=== PATIENT | female | born 1990 | race Caucasian/White ===

== ENCOUNTER 2016-10-14 00:17 | Emergency (ER) | payer OTHER ==
[2016-10-14 00:22] VITALS: RESP 18
--- NOTE | 2016-10-14 00:41 | ED ---
Lower Extremity Injury HPI - General Chief Complaint: Extremity Injury, Lower Stated Complaint: R Ankle Injury Time Seen by Provider: 10/14/16 00:26 Source: patient, RN notes reviewed Mode of arrival: wheelchair Limitations: no limitations - History of Present Illness Initial Comments: 26-year-old female presents to the emergency department with a chief complaint of right foot and palacios pain. Patient states she was jumping off the diving board and developed he threw his foot and should. Patient states she did not hit her head there is no other injury. Patient states that she has increased pain when she touches walks or moves that extremity. Patient denies any knee pain. Patient states due to her pain and swelling she thought that she should be evaluated.Patient denies any recent fever, chills, shortness of breath, chest pain, back pain, abdominal pain, nausea vomiting, numbness or tingling, dysuria or hematuria, constipation or diarrhea, headaches or visual changes, or any other current symptoms. - Related Data Previous Rx's Medication Instructions Recorded Ibuprofen [Motrin] 600 mg PO Q6HR PRN #20 tab 10/14/16 Allergies Allergy/AdvReac Type Severity Reaction Status Date / Time adhesive Allergy Rash/Hives Verified 10/14/16 00:22 latex Allergy Rash/Hives Verified 10/14/16 00:22 Review of Systems ROS Statement: Those systems with pertinent positive or pertinent negative responses have been documented in the HPI. ROS Other: All systems not noted in ROS Statement are negative. Past Medical History Past Medical History: No Reported History History of Any Multi-Drug Resistant Organisms: None Reported Past Surgical History: No Surgical Hx Reported Past Psychological History: No Psychological Hx Reported Smoking Status: Never smoker Past Alcohol Use History: None Reported Past Drug Use History: None Reported General Exam - General Exam Comments Initial Comments: General: The patient is awake and alert, in no distress, and does not appear acutely ill. Neck: The neck is supple, there is no tenderness or JVD. Cardiovascular: There is a regular rate and rhythm. No murmur, rub or gallop is appreciated. Respiratory: Lungs are clear to auscultation, respirations are non-labored, breath sounds are equal. No wheezes, stridor, rales, or rhonchi. Musculoskeletal: Sensation intact. 2+ pulses throughout the right lower extremity. Patient does appear to have swelling to the right foot and tenderness along the forefoot. No tenderness to the bony prominences of the right ankle. Tenderness along the tibia. No tenderness to the right knee. Full range of motion of right knee and right ankle. Neurological: CN II-XII intact, There are no obvious motor or sensory deficits. Coordination appears grossly intact. Speech is normal. Skin: Skin is warm and dry and no rashes or lesions are noted. Psychiatric: Normal mood and affect. Limitations: no limitations Course Vital Signs 10/14/16 00:20 Temperature 98.0 F Pulse Rate 94 Respiratory 18 Rate Blood Pressure 174/92 O2 Sat by Pulse 98 Oximetry Procedures - Orthopedic Splinting/Casting Injury #1 Side: right Lower Extremity Injury Location: foot Lower Extremity Immobilizer: posterior splint (Short leg) Medical Decision Making - Medical Decision Making 26-year-old female presents emergency Department chief complaint of right foot injury. This time patient's x-ray is reviewed that is showing suspicion for Lisfranc 10-like injury. This time she was placed in a splint. We discussed the importance of follow-up with or so. We did discuss the risks of this not being treated and that she could lose function of that foot. We did discuss nonweightbearing of that foot and all the patient's questions. She stated that she understood and she is in agreement plan. She will be discharged. - Radiology Data Radiology results: report reviewed, image reviewed Disposition Clinical Impression: Lisfranc's sprain Disposition: HOME SELF-CARE Condition: Stable Instructions: Foot Sprain (ED) Additional Instructions: Please use medication as discussed. Please follow up with family doctor if symptoms have not improved over the next two days. Please return to the emergency room if your symptoms increase or worsen or for any other concerns. Nonweightbearing to the right foot Prescriptions: Ibuprofen [Motrin] 600 mg PO Q6HR PRN #20 tab PRN Reason: Pain Referrals: Taty Hutson MD [Primary Care Provider] - 1-2 days Jesus Ball MD [Medical Doctor] - 1-2 days Time of Disposition: 02:07
--- NOTE | 2016-10-14 01:32 | XR ---
EXAM: XR Right Tibia and Fibula, 4 Views CLINICAL HISTORY: Reason: Pain TECHNIQUE: Frontal and lateral views of the right tibia and fibula. COMPARISON: None. FINDINGS: Bones/joints: Unremarkable. No acute fracture. No dislocation. Soft tissues: 0.3 cm radiopaque structure in the soft tissues anterior to the distal tibia/fibula, only definitively seen on the lateral view. Finding is likely superficial. Clinical correlation to rule out foreign body. IMPRESSION: Noted radiographic evidence of acute osseous injury. A 0.3 cm radiopaque structure in the soft tissues anterior to the distal tibia/fibula, only definitively seen on the lateral view. Finding is likely superficial. Clinical correlation to rule out foreign body. .
--- NOTE | 2016-10-14 01:41 | XR ---
EXAM: XR Right Foot Complete, 3 or More Views CLINICAL HISTORY: Reason: Pain TECHNIQUE: Frontal, lateral and oblique views of the right foot. COMPARISON: None. FINDINGS: Bones/joints: No radiographic evidence of acute osseous injury. Soft tissues: There appears to be increase space between the first and second metatarsal bases, measuring up to 3.6 mm. Finding raises a concern for a subtle Lisfranc ligament injury. Soft tissue swelling is seen overlying the foot. No radiopaque foreign body. IMPRESSION: Increased space between the first and second metatarsal bases, measuring up to 3.6 mm. Finding raises concern for a subtle Lisfranc ligament injury. MRI of the right foot is recommended for further evaluation. No radiographic evidence of acute osseous injury. Soft tissue swelling overlies the foot.
[2016-10-14] MEDS ORDERED: IBUPROFEN 600 MG TAB PO STA (02:07)
[2016-10-14 02:27] VITALS: BP 139/84; PULSE 100; TEMP 97.9
== END 2016-10-14 02:28 | disposition home or self-care (01) ==
LOC: EC 00:17
DX: S93.691A Other sprain of right foot, initial encounter (principal); Z91.048 Other nonmedicinal substance allergy status; Z91.040 Latex allergy status; X50.0XXA Overexertion from strenuous movement or load, initial encounter; Y93.39 Activity, other involving climbing, rappelling and jumping off
CPT/HCPCS: 29515; 99283

== ENCOUNTER 2016-11-04 10:47 | Day surgery (SDC) | payer OTHER ==
[2016-11-02 18:34] VITALS: BMI 45.4
[~2016-11-04 10:47] MED LIST: DEXAMETHASONE SOD PHOSPHATE 10 MG/ML 1 ML VIAL IV ONE; LACTATED RINGERS 1,000 ML IV SCH; LIDOCAINE 1% 20 ML VIAL (10MG/ML) FOR IV START INTRADERMA PRN; ONDANSETRON 4 MG/2 ML VIAL IVP ONE; SCOPOLAMINE 1.5MG/72HR PATCH TRANSDERM ONE; ceFAZolin 3 GM in SODIUM CHLORIDE 0.9% 100 ML IVPB ONE
[2016-11-04] MEDS ORDERED: MIDAZOLAM 2 MG/2 ML VIAL IV ONE (11:54)
[2016-11-04] MEDS ORDERED: fentaNYL (PF) 50 MCG/ML 2 ML AMP ONE (12:28)
[2016-11-04] MEDS ORDERED: MIDAZOLAM 2 MG/2 ML VIAL ONE (12:28)
[2016-11-04] MEDS ORDERED: LABETALOL 5 MG/ML VIAL MDV ONE (12:28)
[2016-11-04] MEDS ORDERED: SUCCINYLCHOLINE CHLORIDE VIAL 200 MG/10 ML VIAL IV ONE (12:28)
[2016-11-04] MEDS ORDERED: PROPOFOL 10 MG/ML 20 ML VIAL IV ONE (12:28)
[2016-11-04] MEDS ORDERED: LIDOCAINE 1% INJ 10MG/ML (20 ML MDV) ONE (12:28)
[2016-11-04] MEDS ORDERED: HYDROmorphone (PF) 1 MG/ML ONE (12:28)
[2016-11-04 14:41] VITALS: TEMP 97.9
[2016-11-04] MEDS: HYDROmorphone 1 MG/ML 1 ML SYRINGE IVP PRN ×2 (14:49→14:53)
--- NOTE | 2016-11-04 14:56 | XR ---
Limited right foot HISTORY: Lisfranc fracture 7 Intraoperative C-arm images document the procedure
--- NOTE | 2016-11-04 14:58 | P.OP ---
Date of Procedure: 11/04/16 Preoperative Diagnosis: 1. Right foot Lisfranc disruption 2. Morbid obesity with a BMI of 45.4 3. Family history of DVT and PE Postoperative Diagnosis: Same Procedure(s) Performed: 1. Right foot open reduction and internal fixation of Lisfranc injury 2. Right foot radiographic stress exam under anesthesia by physician Implants: Anesthesia: FARZANA Surgeon: Jesus Ball Door Worker #1: Matthieu Zambrano Estimated Blood Loss (ml): 20 IV fluids (ml): 600 Pathology: none sent Condition: stable Disposition: PACU Indications for Procedure: The patient is a previously healthy 26-year-old female with a medical history significant for morbid obesity who presented to my office as a referral from my partner with an isolated injury to her right foot. The patient sustained an injury to her right foot on a diving board. She was seen by my partner who obtained x-rays and an MRI. The MRI showed complete disruption of the Lisfranc ligament. She was referred to my office for further evaluation. On examination the patient had diffuse tenderness over the dorsal midfoot and plantar ecchymosis. The MRI showed complete disruption of the Lisfranc ligament. Nonweightbearing x-rays of both feet showed diastases between the middle and medial cuneiforms and between the base of the second metatarsal and medial cuneiform. Due to the patient's imaging and physical exam findings I recommended a manual stress exam under anesthesia and open reduction internal fixation if this exam was unstable. We discussed potential risks and complication of surgery including but not limited to risk of anesthesia, risk of superficial infection, risk of deep infection, risk of delayed wound healing , risk of wound necrosis, risk of damage to local sensory nerves resulting in temporary or permanent numbness, risk of postoperative diastases, risk of postoperative instability, risk of need for further surgery, risk of post hematocrit arthritis, risk of arch collapse, risk of difficulty ambulating following surgery, risk of chronic pain, risk of chronic swelling, risk of need for hardware removal, risk of loss of life or limb, and possibly postoperative medical complications including DVT or fatal PE. The patient and her mom understand these potential risks and complications. They also understand that she has a higher risk of having a complication due to her weight. Operative Findings: Description of Procedure: The patient was identified in preoperative holding and the correct extremity was marked with my initials. All of the patient's questions were answered. The patient was then brought back to the operating room. She was positioned on the operating room table and a general anesthetic was administered. Once under anesthetia a manual stress x-ray of the patient's right foot was obtained. There was diastases between the second metatarsal base and medial cuneiform as well as the second and third tarsometatarsal joints. I interpreted this as instability requiring surgical fixation. The patient was then positioned on the operating room table and all bony prominences were well-padded. A tourniquet was applied to the proximal aspect of the right thigh. The left leg was secured to the operating room table with foam and tape. The patient's right leg was then prepped and draped in the standard sterile fashion. Prior to starting surgery timeout was performed identifying the correct patient, operative extremity, and procedure. The patient's right leg was then elevated, exsanguinated with an Esmarch bandage, and the tourniquet was inflated to 250 mmHg. I began by outlining a longitudinal incision over the dorsal midfoot in the 1-2 in her metatarsal space. Skin incision with a 15 blade scalpel and dissection was carried down carefully to the subcutaneous tissue with tenotomy scissors. Crossing superficial nerves were retracted. Veins were controlled with electrocautery. The EHL sheath was incised longitudinally in line with the skin incision. I developed the interval between the EHL and EHB. Immediately upon exposing the first and second tarsometatarsal joint there was obvious disruption between the base of the second metatarsal and medial cuneiform. There is also intercuneiform instability. I was easily able to pass a [place] elevator in the intercuneiform space. I was also able to easily displace the second metatarsal base out of its keystone. The Lisfranc complex was grossly unstable. At this point a wgnaa-ti-oalfx reduction clamp was placed with 1 jojo over the medial cuneiform and 1 jojo over the middle cuneiform. The joint was reduced both clinically and radiographically. Once the joint was reduced I placed a K wire for a cannulated 2.7 mm drill bit from medial to lateral across the medial and middle cuneiform. The position of the wire was assessed with fluoroscopy. A cannulated depth gauge was used to measure screw. The cannulated 2.7 mm drill bit was used to create a path for a fully threaded 3.5 mm screw. I placed the screw across the intercuneiform joint generating excellent stability. After the screw was placed are removed the [id number]-fb-qqcpz reduction clamp and there was no longer instability of the intercuneiform joint. At this point I placed one jojo of a large Fabian reduction clamp on the lateral border of the second metatarsal base and the other jojo through a stab incision over the medial aspect of the medial cuneiform. I gently reduced the clamp pulling the second metatarsal base into the mortise. Clinically the second metatarsal base appeared to be anatomically reduced. I verified reduction using C-arm fluoroscopy. I then placed a K wire from the medial border of the medial cuneiform to the base of the second metatarsal. The position of the wire was verified with fluoroscopy. I then used a cannulated 2.7 mm drill bit to create a path for a fully threaded 3.5 mm screw. The wire and drill were removed and a fully threaded 3.5 mm screw was placed. I then removed the Fabian reduction clamp and the reduction held. Clinically the tarsometatarsal joint appeared to be anatomically reduced and stable. I was no longer able to pass a [place] elevator in the intercuneiform or 1- 2 intermetatarsal space. Fluoroscopy was then used to assess both reduction and stability. AP, oblique, and lateral x-rays showed reduction of the Lisfranc injury and hardware in acceptable position. A manual abduction stress x-ray showed no widening between the second metatarsal base and medial cuneiform. The tarsometatarsal joints all appeared to be stable. At this point the patient 's Lisfranc joint complex appeared stable both clinically and radiographically and she did not appear to need any more surgical fixation. The wound was then copiously irrigated. The periosteum over the tarsometatarsal joint complex was closed with a running 2-0 Vicryl stitch. The deep subcu was reapproximated using 2-0 Vicryl. The skin was closed using 3-0 nylon horizontal mattress stitches. The stab hole medially was also closed with 3-0 nylon horizontal mattress stitches. I verified that all instrument, sponge, and sharp counts were correct. The tourniquet was then let down for total tourniquet time of 56 minutes. Brown quartering stretchy Steri-Strips were placed between the stitches. A sterile dressing consisting of Betadine soaked Adaptic, 4 x 4, and web roll was applied. The drapes were taken down and a very well-padded bulky Weiner type splint was applied. The patient was then awoken from her anesthetic , transferred from the operating room table to a gurney and brought to PACU having time of the procedure well. Matthieu Zambrano PA-C was required as a skilled public health training assistant for patient positioning, surgical approach and retraction, fracture reduction, placement of hardware, closure of surgical wound, and application of splint. Plan: The patient is going to discharge home as an outpatient. She was to remain strictly nonweightbearing on her operative extremity. She is to keep her splint clean and dry. The patient's mom states that her dad has a personal history of DVT and PE. Due to the patient's weight and family history of DVT and PE I would like to treat her with Lovenox 40 mg daily for DVT prophylaxis for 4 weeks. I also encouraged early ambulation and discussed the potential signs and symptoms of both a DVT and PE.
[2016-11-04 15:02] VITALS: RESP 16
--- NOTE | 2016-11-04 15:02 | FL ---
Fluoroscopy HISTORY: Pain 3 minutes 24 seconds fluoroscopy time supplied to the referring clinician. 7 intraoperative C-arm im ages document the procedure. See dictated report from orthopedic surgery.
[2016-11-04] MEDS ORDERED: HYDROcodone/APAP 10-325MG 1 EACH TAB PO ONE (15:41)
[2016-11-04 16:33] VITALS: BP 137/91; PULSE 95
== END 2016-11-04 17:24 | disposition home or self-care (01) ==
LOC: OR 10:47
PROVIDERS: ATTEND Orthopaedic Surgery
DX: S93.324A Dislocation of tarsometatarsal joint of right foot, initial encounter (principal); W21.4XXA Striking against diving board, initial encounter; E66.01 Morbid (severe) obesity due to excess calories; Z68.42 Body mass index [BMI] 45.0-49.9, adult; Z82.49 Family history of ischemic heart disease and other diseases of the circulatory system
CPT/HCPCS: 81025; 73620; 28615; C1713; J2250; J0330; J1100; J0690; J2405; J2001; J3010; J1170; J2704

== ENCOUNTER 2022-09-13 15:09 | Emergency (ER) | payer OTHER ==
[2022-09-13] MEDS ORDERED: AMOXIC-POT CLAV 875-125MG 1 EACH TAB PO STA (16:47)
[2022-09-13] MEDS ORDERED: ONDANSETRON 4 MG/2 ML VIAL IM STA (16:47)
[2022-09-13] MEDS ORDERED: BENZOCAINE SPRAY 1 CAN MUCOUS MEM PRN (16:47)
[2022-09-13] MEDS ORDERED: IBUPROFEN 800 MG TAB PO STA (16:48)
--- NOTE | 2022-09-13 16:49 | ED ---
ENT HPI - General Chief complaint: ENT Stated complaint: sore throat Time Seen by Provider: 09/13/22 16:21 Source: patient Mode of arrival: ambulatory Limitations: no limitations - History of Present Illness Initial comments: Patient is a 32-year-old female presents to the emergency department for tonsil stone patient states she has had this tonsil stones since March. States her dentist try to remove it without success. She has an ENT appointment at [facility] October 05 but states that tonsil stone has been causing increased pain lately. She denies fever, chills, nausea, vomiting. . - Related Data Home Medications Medication Instructions Recorded Confirmed Acetaminophen-Codeine 300-30mg 1 tab PO Q8H PRN 11/02/16 11/04/16 [Tylenol #3] Previous Rx's Medication Instructions Recorded Aspirin 325 mg PO BID #60 tab 11/04/16 Docusate [Colace] 100 mg PO BID #60 capsule 11/04/16 Enoxaparin [Lovenox] 40 mg SQ DAILY #28 syringe 11/04/16 HYDROcodone/APAP 10-325MG [[place] 1 tab PO Q4HR PRN #60 tab 11/04/16 10-325] Amoxic-Pot Clav 875-125Mg 1 tab PO BID 10 Days #20 tab 09/13/22 [Augmentin 875-125] Ibuprofen [Motrin] 800 mg PO Q8HR PRN #30 tab 09/13/22 Allergies Allergy/AdvReac Type Severity Reaction Status Date / Time adhesive Allergy Rash/Hives Verified 09/13/22 15:36 latex Allergy Rash/Hives Verified 09/13/22 15:36 Review of Systems ROS Statement: Those systems with pertinent positive or pertinent negative responses have been documented in the HPI. ROS Other: All systems not noted in ROS Statement are negative. Past Medical History Past Medical History: Musculoskeletal Disorder Additional Past Medical History / Comment(s): RT FOOT FX 10/13/16, WEARING SPLINT, USING CRUTCHES AND W/C. History of Any Multi-Drug Resistant Organisms: None Reported Past Surgical History: No Surgical Hx Reported Additional Past Surgical History / Comment(s): EXC WISDOM TEETH Past Anesthesia/Blood Transfusion Reactions: No Reported Reaction, Motion Sickness Past Psychological History: No Psychological Hx Reported Smoking Status: Never smoker Past Alcohol Use History: None Reported Past Drug Use History: None Reported - Past Family History Father Family Medical History: Deep Vein Thrombosis (DVT) General Exam Limitations: no limitations General appearance: alert, in no apparent distress Eye exam: Present: normal appearance, PERRL, EOMI. Absent: scleral icterus, conjunctival injection, periorbital swelling ENT exam: Absent: normal oropharynx (Left tonsil stone 1 cm with mild surrounding erythema) Neck exam: Present: normal inspection, full ROM. Absent: tenderness, meningismus, lymphadenopathy Respiratory exam: Present: normal lung sounds bilaterally. Absent: respiratory distress, wheezes, rales, rhonchi, stridor Cardiovascular Exam: Present: regular rate, normal rhythm, normal heart sounds. Absent: systolic murmur, diastolic murmur, rubs, gallop, clicks Neurological exam: Present: alert, oriented X3, CN II-XII intact Psychiatric exam: Present: normal affect, normal mood Skin exam: Present: warm, dry, intact, normal color. Absent: rash Course Vital Signs 09/13/22 09/13/22 15:33 17:02 Temperature 98.2 F 98.8 F Pulse Rate 79 76 Respiratory 20 18 Rate Blood Pressure 172/123 112/76 O2 Sat by Pulse 100 Oximetry Medical Decision Making - Medical Decision Making Was pt. sent in by a medical professional or institution (, PA, SCIENTIFIC PUBLICATIONS EDITOR, urgent care, hospital, or custodial...) When possible be specific @ -No Did you speak to anyone other than the patient for history (EMS, parent, family, police, friend...)? What history was obtained from this source @ -No Did you review nursing and triage notes (agree or disagree)? Why? @ -I reviewed and agree with nursing and triage notes Were old charts reviewed (outside hosp., previous admission, EMS record, old EKG, old radiological studies, urgent care reports/EKG's, custodial records)? Report findings @ -No old charts were reviewed Differential Diagnosis (chest pain, altered mental status, abdominal pain women, abdominal pain men, vaginal bleeding, weakness, fever, dyspnea, syncope, headache, dizziness, GI bleed, back pain, seizure, CVA, palpatations, mental health)? @ -Upper respiratory infection, tonsil stone, abscess, strep throat. This list is not meant to be all-inclusive EKG interpreted by me (3pts min.). @ -As above X-rays interpreted by me (1pt min.). @ -None done CT interpreted by me (1pt min.). @ -None done U/S interpreted by me (1pt. min.). @ -None done What testing was considered but not performed or refused? (CT, X-rays, U/S, labs)? Why? @ -None What meds were considered but not given or refused? Why? @ -None Did you discuss the management of the patient with other professionals (professionals i.e. DrMyles, PA, SCIENTIFIC PUBLICATIONS EDITOR, lab, RT, psych nurse, social work case manager, administrative support technician, teacher, restoration officer, porter sample case)? Give summary @ -No Was smoking cessation discussed for >3mins.? @ -No Was critical care preformed (if so, how long)? @ -No Were there social determinants of health that impacted care today? How? (Homelessness, low income, unemployed, alcoholism, drug addiction, transportation, low edu. Level, literacy, decrease access to med. care, longterm, rehab)? @ -No Was there de-escalation of care discussed even if they declined (Discuss DNR or withdrawal of care, Hospice)? DNR status @ -No What co-morbidities impacted this encounter? (DM, HTN, Smoking, COPD, CAD, Cancer, CVA, ARF, Chemo, Hep., AIDS, mental health diagnosis, sleep apnea, morbid obesity)? @ -None Was patient admitted / discharged? Hospital course, mention meds given and route, prescriptions, significant lab abnormalities, going to OR and other pertinent info. @ Discharge. Patient presenting with tonsil stone. There is left tonsil stone 1 cm with mild surrounding erythema. I attempted to remove the tonsil stone without success. My attending Dr. Gaston then attempted however we were unable to get the tonsil stone out. Patient will continue saltwater gargles and she'll be placed on antibiotics until she can see ENT. She is discharged with antibiotics and pain management. Undiagnosed new problem with uncertain prognosis? @ -No Drug Therapy requiring intensive monitoring for toxicity (Heparin, Nitro, Insulin, Cardizem)? @ -No Were any procedures done? @ Yes, attempt of tonsil stone removal Diagnosis/symptom? @ -tonsil stone Acute, or Chronic, or Acute on Chronic? @ -acute on chronic Uncomplicated (without systemic symptoms) or Complicated (systemic symptoms)? @ -uncomplicated Side effects of treatment? @ -No Exacerbation, Progression, or Severe Exacerbation? @ -No Poses a threat to life or bodily function? How? (Chest pain, [place], [place], pneumonia, PE, COPD, DKA, ARF, appy, cholecystitis, CVA, Diverticulitis, Homicidal, Suicidal, threat to staff... and all critical care pts) @ -No Dr. Gaston is my attending - Lab Data Lab Results 09/13/22 Range/Units 16:42 Group A Strep (PCR) NOT DETECTED (Not Detectd) Disposition Clinical Impression: Tonsil stone Disposition: HOME SELF-CARE Condition: Good Instructions (If sedation given, give patient instructions): Tonsillitis (ED) Additional Instructions: Continue warm salt water gargles. Take medication as directed. Please follow-up with ENT specialist as planned. Return to the emergency department if you experience new, concerning, or worsening symptoms. Prescriptions: Amoxic-Pot Clav 875-125Mg [Augmentin 875-125] 1 tab PO BID 10 Days #20 tab Ibuprofen [Motrin] 800 mg PO Q8HR PRN #30 tab PRN Reason: Pain Is patient prescribed a controlled substance at d/c from ED?: No Referrals: Taty Hutson MD [Primary Care Provider] - 1-2 days
[2022-09-13 17:03] VITALS: BP 112/76; PULSE 76; RESP 18; TEMP 98.8
== END 2022-09-13 17:04 | disposition home or self-care (01) ==
LOC: EC 15:09
DX: J35.8 Other chronic diseases of tonsils and adenoids (principal); Z91.040 Latex allergy status; Z88.8 Allergy status to other drugs, medicaments and biological substances
CPT/HCPCS: 87651; 96372; 99283